=== PATIENT | female | born 1990 | race Caucasian/White ===

== ENCOUNTER 2016-08-23 19:36 | Emergency (ER) | payer MEDICAID ==
[2016-08-23] MEDS ORDERED: Bacitracin pkt 1 gm Pkt TP ONE (20:18)
[2016-08-23] MEDS ORDERED: Triple Antibiotic 0.94 gm Pkt TP STA (20:18)
--- NOTE | 2016-08-23 20:24 | ED Physician Chart ---
Chief Complaint/HPI - Patient Information Date Seen:: 08/23/16 Time Seen:: 20:00 Chief Complaint:: pain left larg toe History of Present Illness:: patient has had pain and swelling adjacent to medial side of left large toe nail for the last two days. Denies trauma. Allergies:: Allergies Allergy/AdvReac Type Severity Reaction Status Date / Time No Known Allergies Allergy Verified 08/23/16 20:06 Vitals:: Vital Signs - 8 hr 08/23/16 19:45 Temp 97.7 F HR 113 RR 18 BP 136/69 O2 Sat % 96 Historian:: Patient Review:: Nurse's Note Reviewed Review of Systems - Review of Systems General/Constitutional: No fever, No chills Skin: Skin lesions Head: No headache Eyes: No loss of vision ENT: No earache Neck: No neck pain Cardio Vascular: No chest pain, No palpitations Pulmonary: No SOB GI: No nausea, No vomiting G/U: No dysuria Musculoskeletal: No bone or joint pain, No muscle pain Endocrine: No polyuria, No polydipsia Psychiatric: No prior psych history Hematopoietic: No bruising Allergic/Immuno: No urticaria Neurological: No syncope Past Medical History - Past Medical History Past Medical History: No significant medical hx Family History: None Social History: Non Smoker Surgical History: Cholecystectomy Psychiatricy History: None Medication: None Family Medical History - Family Member Mother Ethnicity: Living Status: Still Living Hx Family Cancer: No Hx Family Coronary Artery Disease: No Hx Family Congestive Heart Failure: No Hx Family Hypertension: No Hx Family Stroke: No Hx Family Diabetes: No Hx Family Seizures: No Hx Family Dementia: No Hx Family AIDS: No Hx Family HIV: No Hx Family COPD: No Hx Family Hepatitis: No Hx Family Psychiatric Problems: No Hx Family Tuberculosis: No Physical Exam - Physical Examination General/Constitutional: Well-developed, well-nourished, Alert Head: Atraumatic Eyes: Lids, conjuctiva normal, PERRL Other Skin comments:: left large toe: redness and swelling adjacent to medial side of nail. ENMT: External ears, nose nl Neck: No nuchal rigidity Respiratory: Nl effort/Exclusion, Clear to Auscultation Cardio Vascular: RRR GI: No tenderness/rebounding/guarding, No organomegaly : No CVA tenderness Extremities: No edema Neuro/Psych: Alert/oriented Assessment Comments: skin cleanse betadine solution; 1% xlyocaine for digital block; medial side of nail elevated with sterile iris scissors and wedge shaped section of nail resected. ED Septic Shock - . Is Septic Shock (SBP<90, OR Lactate>4 mmol\L) present?: No - <6hrs of presentation: Vital Signs: Vital Signs - 8 hr 08/23/16 19:45 Temp 97.7 F HR 113 RR 18 BP 136/69 O2 Sat % 96 Reassessment (Disposition) - Reassessment Reassessment Condition:: Improved - Diagnosis Diagnosis:: Ingrown toe nail left large toe - Aftercare/Follow up Instructions Aftercare/Follow-Up Instructions:: Refer to Discharge Instructions - Patient Disposition Discharge/Transfer:: Home Condition at Disposition:: Stable, Improved
== END 2016-08-23 20:52 | disposition home or self-care (01) ==
LOC: ER 19:36
DX: L60.0 Ingrowing nail (principal)
CPT/HCPCS: 99284; 11750; Z7610; J2001; Z7502